=== PATIENT | male | born 1985 | race Caucasian/White ===

== ENCOUNTER 2017-11-01 21:04 | Emergency (ER) | payer SELFPAY, MEDICAID ==
[2017-11-01] MEDS: IBUPROFEN 800 MG TAB PO (23:41)
== END 2017-11-02 01:30 | disposition home or self-care (01) ==
LOC: FTE 11-02 01:30
DX: S62.395A Other fracture of fourth metacarpal bone, left hand, initial encounter for closed fracture (principal); W23.0XXA Caught, crushed, jammed, or pinched between moving objects, initial encounter; Y92.9 Unspecified place or not applicable
CPT/HCPCS: 29125; 73130-LT; 99283-25